=== PATIENT | female | born 1965 | race African-American/Black ===

== ENCOUNTER 2017-07-14 22:20 | Emergency (ER) | payer OTHER ==
[2017-07-15 00:19] LABS: INFLUENZA A PATIENT NEGATIVE (NEGATIVE); INFLUENZA B PATIENT NEGATIVE (NEGATIVE); OBC FLU VALID
[2017-07-15 05:42] LABS: NEGATIVE OBC STREP NEG; POSITIVE OBC STREP POS
== END 2017-07-15 00:27 | disposition home or self-care (01) ==
LOC: ER 07-15 00:27
DX: J06.9 Acute upper respiratory infection, unspecified (principal); F12.10 Cannabis abuse, uncomplicated; F17.200 Nicotine dependence, unspecified, uncomplicated
CPT/HCPCS: 87070; 87804; 87804-59; 87880; 99284

== ENCOUNTER 2017-09-12 09:49 | Emergency (ER) | payer OTHER ==
[2017-09-12 10:22] LABS: BILIRUBIN,URINE NEGATIVE (NEG); CLARITY,URINE CLOUDY; COLOR,URINE YELLOW; GLUCOSE,URINE NEGATIVE (NEG); NITRITE,URINE NEGATIVE (NEG); PH,URINE 5.5; PROTEIN,URINE NEGATIVE (NEG-TRACE)
[2017-09-12 10:34] LABS: BACTERIA,URINE MODERATE /HPF (0-FEW); RBC,URINE 0 /HPF (0-2); SQUAMOUS EPITHELIAL CELL,UR FEW /LPF
[2017-09-12] MEDS: HYDROcodone/APAP 5/325MG 1 TAB TABLET PO (10:47)
[2017-09-12] MEDS: KETOROLAC 60 MG/2 ML INJ. IM (10:50)
[2017-09-12] MEDS: LIDOCAINE (700MG/PATCH) PATCH. TD (10:50)
== END 2017-09-12 11:00 | disposition home or self-care (01) ==
LOC: ER 09:49
DX: M54.41 Lumbago with sciatica, right side (principal); F12.10 Cannabis abuse, uncomplicated; F10.10 Alcohol abuse, uncomplicated; Z98.51 Tubal ligation status
CPT/HCPCS: 81001; 87086; 96372; 99284-25; J1885

== ENCOUNTER 2017-12-10 08:10 | Emergency (ER) | payer SELFPAY, OTHER ==
[2017-12-10] MEDS: PROMETHAZINE IM 25 MG/ML VIAL IM (08:50)
[2017-12-10] MEDS: KETOROLAC 60 MG/2 ML INJ. IM (08:53)
[2017-12-10] MEDS: diphenhydrAMINE HCL 25 MG CAPSULE PO (08:55)
== END 2017-12-10 09:21 | disposition home or self-care (01) ==
LOC: ER 08:10
DX: G43.009 Migraine without aura, not intractable, without status migrainosus (principal); Z76.0 Encounter for issue of repeat prescription; E78.00 Pure hypercholesterolemia, unspecified; E03.9 Hypothyroidism, unspecified; F10.10 Alcohol abuse, uncomplicated
CPT/HCPCS: 96372; 99284; J1885; J2550; Q0163